=== PATIENT | male | born 1970 | race Caucasian/White ===

== ENCOUNTER 2025-07-10 12:13 | Emergency (ER) | payer BC ==
--- OUTSIDE RECORDS SUMMARY | 2025-07-10 12:16 | XMS REPORT | Continuity of Care Document ---
Author Name Unknown Address [address] [facility] [address] [place] [address] Organization [facility] Address [address] [facility] 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 Role Phone Meño Galloway Primary Care Physician [phone] Lab, Adc Fam Pob I Attending Clinician Libby Kline Attending Clinician Suellen Pablo Attending Clinician [phone] Payers Payer Name Policy Type Policy Number Effective Date Expirati on Date Source Problems Condition Name Condition Details Condition Category Status Onset Date Resolution Date Last Treatment Date Treating Clinician Comments Source No known active problems No known active problems Disease [facility] Allergies, Adverse Reactions, Alerts Allergy Name Allergy Type Status Severity Reaction(s) Onset Date Inactive Date Treating Clinician Comments Source none (Not Checked) Propensi ty to adverse reaction to drug Active 02-01 00:00: 00 Carlos Garcia Social History Social Habit Start Date Stop Date Quantity Comments Source Exposure to SARS-CoV-2 (event) Not sure [facility] Sex Assigned At [facility] Smoking Status Start Date Stop Date Source Unknown if ever smoked [facility] Medications Ordered Medication Name Filled Medication Name Start Date Stop Date Current Medication? Ordering Clinician Indication Dosage Frequency Signature (SIG) Comments Components Source metformin 500 mg tablet 02-01 00:00: 00 Yes 1mg Carlos Garcia atorvastati n 10 mg tablet 02-01 00:00: 00 Yes 1mg Carlos Garcia oxybutynin chloride ER 10 mg tablet,exte nded release 24 hr 02-01 00:00: 00 Yes 1mg Carlos Garcia TAKE 1 TABLET BY MOUTH EVERY 4 TO 6 HOURS NEEDED 06-23 00:00: 00 Yes Carlos Garcia AMOXICILLIN 500MG CAPSULES 06-23 00:00: 00 Yes Carlos Garcia TAKE 1 TABLET DAILY. 11-28 00:00: 00 02-01 00:00 :00 No 500 Carlos Garcia TAKE 1 TABLET DAILY. 11-28 00:00: 00 02-01 00:00 :00 No 10 Carlos Garcia TAKE 1 TABLET BY MOUTH DAILY DIRECTED 11-28 00:00: 00 02-01 00:00 :00 No 10 Carlos Garcia ORPHENADRIN E ER 100 MG 2021-09 00:00: 00 Yes 100 Carlos Garcia MELOXICAM 7.5 MG 2021-09 00:00: 00 Yes 75 Carlos Garcia ibuprofen (IBU) tablet 800 mg 05-12 02:45: 00 05-12 01:38 :00 No 800mg 800 mg, Oral, ONCE, 1 dose, 05/11/19 at 2145, TIFFANIE [facility] No known medications No Un yesika [facility] No known medications No Un [facility] Vital Signs Vital Name Observation Time Observation Value Comments S ource Diastolic blood pressure 2019-05-12 01:05:00 75 mm[Hg] [facility] Heart rate 2019-05-12 01:05:00 78 /min [facility] Body temperature 2019-05-12 01:05:00 37 Daniela [facility] Respiratory rate 2019-05-12 01:05:00 20 /min [facility] Body height 2019-05-12 01:05:[address] [facility] Body weight 2019-05-12 01:05:[address] [facility] BMI 2019-05-12 01:05:00 29.16 kg/m2 [facility] Oxygen saturation in Arterial blood by Pulse oximetry 2019-05-12 01:05:00 99 /min [facility] Systolic blood pressure 2019-05-12 01:05:00 114 mm[Hg] [facility] Height Measured 2024-02-02 17:14:00 71.00 inches Carlos F Jose Body Temperature 2024-02-02 17:14:00 97.70 degrees Carlos F Jose Heart Rate 2024-02-02 17:14:00 65.00 /min Dodie en F Jose Respiratory Rate 2024-02-02 17:14:00 18.00 /min Carlos F Jose BP Systolic 2024-02-02 17:14:00 122 mm[Hg] Step hen F Jose BP Diastolic 2024-02-02 17:14:00 81 mm[Hg] [place] phen F Jose Weight Measured 2024-02-02 17:14:00 219.80 pounds Carlos F Jose BP Systolic 2022-11-28 14:31:00 133 mm[Hg] Step hen F Jose BP Diastolic 2022-11-28 14:31:00 68 mm[Hg] [place] phen F Jose Weight Measured 2022-11-28 14:31:00 225.40 pounds Carlos F Jose Height Measured 2022-11-28 14:31:00 71.00 inches Carlos F Jose Body Temperature 2022-11-28 14:31:00 97.40 degrees Carlos F Jose Heart Rate 2022-11-28 14:31:00 70.00 /min Dodie en F Jose Respiratory Rate 2022-11-28 14:31:00 25.00 /min Carlos F Jose BP Systolic 2022-11-27 13:59:00 135 mm[Hg] Step hen F Jose BP Diastolic 2022-11-27 13:59:00 83 mm[Hg] [place] phen F Jose Weight Measured 2022-11-27 13:59:00 224.60 pounds Carlos F Jose Height Measured 2022-11-27 13:59:00 71.00 inches Carlos F Jose Body Temperature 2022-11-27 13:59:00 97.50 degrees Carlos F Jose Heart Rate 2022-11-27 13:59:00 70.00 /min Dodie en F Jose Respiratory Rate 2022-11-27 13:59:00 Carlos F Jose Procedures Procedure Date / Time Performed Performing Clinicia n Source XR ANKLE <3 VW LEFT 2019-05-12 01:52:12 Jackelin Haji [facility] XR FOOT <3 VW LEFT 2019-05-12 01:52:12 Suellen Haji [facility] Encounters Start Date/Time End Date/Time Encounter Type Admission Type Attending [facility] Care Department Encounter ID Source 2024-02-05 08:04:45 2024-02-05 08:04:45 Outpatient SFA SFA [id number] Carlos Garcia 2024-02-02 17:12:31 2024-02-02 17:12:31 Outpatient SFA SFA [id number] Carlos Garcia 2024-02-02 00:00:00 2024-02-02 00:00:00 Outpatient Visit SFA [id number] Carlos Garcia 2022-11-28 14:27:12 2022-11-28 14:27:12 Outpatient SFA SFA [id number] Carlos Garcia 2022-11-27 13:52:57 2022-11-27 13:52:57 Outpatient SFA SFA [id number] Carlos Gomez Jose 2020-10-08 15:48:10 2020-10-08 16:03:10 Laboratory Only Lab, Adc Fam Pob Mikhail Milan [facility] Office [address] [id number] [facility] 2019-05-11 20:07:07 2019-05-11 21:36:00 Emergency Suellen Haji [facility] [id number] [facility] Results Test Description Test Time Test Comments Results Result Co mments Source LIPID [id number] 05:17:12* Test Item Value Reference Range Interpretation Comme nts CHOLESTEROL (test code = 2210) 192 MG/DL <200 TRIGLYCERIDES (test code = 2232) 152 MG/DL <150 H HDL CHOLESTEROL (test code = 2220) 34 MG/DL >39 L CALC LDL CHOL (test code = 2237) 131 MG/DL <100 H NOTE: CALCULATED LDL IS BASED ON SHRUTHI-SANDOVAL METHOD WHICHINCLUDES ADJUSTABLE TRIGLYCERIDE:VLDL CHOLESTEROL RATIO.THIS FACTOR VARIES BY MEASURED TRIGLYCERIDE AND NON-HDLCHOLESTEROL CONCENTRATIONS WITH INCREASED CALCULATED LDL SEENIN HIGHER TRIGLYCERIDE OR LOWER NON-HDL SPECIMENS. FOR MOREINFORMATION, SEE CLIENT ANNOUNCEMENT AT [email or web address] /[email or web address] RISK RATIO LDL/HDL (test code = 2238) 3.85 RATIO <3.55 H UNLESS OTHERW ISE INDICATED, ALL TESTING PERFORMED AT [facility] [address] [place] [address] SIGNAL ENGINEER: ELIZABETH SHAVER M.D. CLIA NUMBER [id number] [place]. [id number] HEMOGLOBIN [id number] 02:51:22* Test Item Value Reference Range Interpretation Comme nts HEMOGLOBIN A1c (test code = 02500) 5.9 % 4.2-5.6 H ETHIOPIAN DIAB[employer]E S ASSOCIATION GUIDELINES FOR HGB A1C: PREDIABETES/INCREASED RISK . . . . . . . 5.7-6.4% DIAGNOSIS OF DIABETES . . . . . . . . . >=6.5% WITH CONFIRMATION OR APPROPRIATE SYMPTOMS NOTE: ASSAY MAY BE AFFECTED BY HEMOGLOBINOPATHIES (SICKLE CELL ANEMIA, S-C DISEASE, OTHERS) OR ARTIFICIALLY LOWERED BY DECREASED RED CELL SURVIVAL (HEMOLYTIC ANEMIAS, BLOOD LOSS, ETC.). CONSIDER ALTERNATE TESTING OR LABORATORY CONSULTATION. OCCULT BLD,FECAL,IMMUNOASSAY [id number] 11:24:01* Test Item Value Reference Range Interpretation Comme nts OCCULT BLD, FECAL (test code = 55483) NEGATIVE NEGATIVE [facility] has important pathology staff changes effective 11/27/2022. New pathology staff will provide uninterrupted, excellent patient care and clinical consultation. See URL: [email or web address]. UNLESS OTHERWISE INDICATED, ALL TESTING PERFORMED AT [facility] [employer] [address] [place] [id number] SIGNAL ENGINEER: ELIZABETH SHAVER M.D. CLIA NUMBER [id number] [place]. [id number] OCCULT BLD,FECAL,IMMUNOASSAY [id number] 00:00:00* Test Item Value Reference Range Interpretation Comme nts OCCULT BLD, FECAL (test code = 83263) NEGATIVE Carlos GarciaNOTE:2022-11-29 06:01:13* Test Item Value Reference Range Interpretation Comme nts NOTE: (test code = 998) (NOTE) IN ACCORDANCE [facility] FEDERAL GUIDELINES REQUIRING ALL VERBAL REQUESTS FOR LABORATORY TESTS TO BE ACCOMPANIED BY WRITTEN AUTHORIZATION WITHIN 30 DAYS OF THIS REQUEST, PLEASE SIGN BELOW AND RETURN A COPY OF THIS REPORT BY FAX TO THE LABORATORY SCANNING DEPARTMENT AT [phone]. PHYSICIAN'S SIGNATURE DATE [facility] has important pathology staff changes effective 11/27/2022. New pathology staff will provide uninterrupted, excellent patient care and clinical consultation. See URL: [email or web address]. UNLESS OTHERWISE INDICATED, ALL TESTING PERFORMED AT [facility] [address] [place] [address] SIGNAL ENGINEER: TIFFANIE PATTERSON M.D. CLIA NUMBER [id number] [facility] [place]. [id number] PSA, [id number] 00:50:18* Test Item Value Reference Range Interpretation Comme nts PSA, TOTAL (test code = 2606) 0.46 NG/ML See_Comment NOTE: Methodolog y is Bhupinder Lynn Electrochemiluminescence Immunoassay traceable to WHO reference standard 96/760. [Automated message] The system which generated this result transmitted reference range: <=4.00. The reference range was not used to interpret this result as normal/abnormal. PSA, TOTAL [ADDED]2022-11-29 00:00:00* Test Item Value Reference Range Interpretation Comme nts PSA, TOTAL (test code = 2606) 0.46 NG/ML Carlos GarciaNOTE: [ADDED]2022-11-29 00:00:00* Test Item Value Reference Range Interpretation Comme nts NOTE: (test code = 998) (NOTE) Carlos GarciaCOMPREHENSIVE METABOLIC [id number] 06:04:58* Test Item Value Reference Range Interpretation Comme nts GLUCOSE (test code = 2217) 121 MG/DL 70-99 H BUN (test code = 2208) 11 MG/DL 6-20 CREATININE (test code = 2213) 1.04 MG/DL 0.80-1.40 eGFR (2020 CKD-EPI) (test code = ) 87 ML/MIN/1.73 >60 CALC BUN/CREAT (test code = 2234) 11 RATIO 6-28 SODIUM (test code = 2230) 141 MEQ/L 133-146 POTASSIUM (test code = 2227) 4.8 MEQ/L 3.5-5.4 CHLORIDE (test code = 2214) 101 MEQ/L 95-107 CARBON DIOXIDE (test code = 2205) 26 MEQ/L 19-31 CALCIUM (test code = 2208) 9.6 MG/DL 8.5-10.5 PROTEIN, TOTAL (test code = 2228) 6.8 G/DL 6.1-8.3 ALBUMIN (test code = 2200) 4.6 G/DL 3.5-5.2 CALC GLOBULIN (test code = 2239) 2.2 G/DL 1.9-3.7 CALC A/G RATIO (test code = 2233) 2.1 RATIO 1.0-2.6 BILIRUBIN, TOTAL (test code = 2206) 0.3 MG/DL See_Comment [Automated me ssage] The system which generated this result transmitted reference range: <=1.2. The reference range was not used to interpret this result as normal/abnormal. ALKALINE PHOSPHATASE (test code = 2203) 84 U/L 40-118 AST (test code = 2217) 16 U/L 9-50 ALT (test code = 2218) 12 U/L 5-50 LIPID [id number] 06:04:58* Test Item Value Reference Range Interpretation Comme nts CHOLESTEROL (test code = 2210) 194 MG/DL <200 TRIGLYCERIDES (test code = 2232) 340 MG/DL <150 H HDL CHOLESTEROL (test code = 2220) 31 MG/DL >39 L CALC LDL CHOL (test code = 7) 114 MG/DL <100 H NOTE: CALCULATED LDL IS BASED ON SHRUTHI-SANDOVAL METHOD WHICHINCLUDES ADJUSTABLE TRIGLYCERIDE:VLDL CHOLESTEROL RATIO.THIS FACTOR VARIES BY MEASURED TRIGLYCERIDE AND NON-HDLCHOLESTEROL CONCENTRATIONS WITH INCREASED CALCULATED LDL SEENIN HIGHER TRIGLYCERIDE OR LOWER NON-HDL SPECIMENS. FOR MOREINFORMATION, SEE CLIENT ANNOUNCEMENT AT [email or web address] RISK RATIO LDL/HDL (test code = 2238) 3.68 RATIO <3.55 H HEMOGLOBIN [id number] 05:58:02* Test Item Value Reference Range Interpretation Comme nts HEMOGLOBIN A1c (test code = 58899) 6.1 % 4.2-5.6 H ETHIOPIAN DIABETE S ASSOCIATION GUIDELINES FOR HGB A1C: PREDIABETES/INCREASED RISK . . . . . . . 5.7-6.4% DIAGNOSIS OF DIABETES . . . . . . . . . >=6.5% WITH CONFIRMATION OR APPROPRIATE SYMPTOMS NOTE: ASSAY MAY BE AFFECTED BY HEMOGLOBINOPATHIES (SICKLE CELL ANEMIA, S-C DISEASE, OTHERS) OR ARTIFICIALLY LOWERED BY DECREASED RED CELL SURVIVAL (HEMOLYTIC ANEMIAS, BLOOD LOSS, ETC.). CONSIDER ALTERNATE TESTING OR LABORATORY CONSULTATION. [facility] has important pathology staff changes effective 11/27/2022. New pathology staff will provide uninterrupted, excellent patient care and clinical consultation. See URL: [email or web address]. UNLESS OTHERWISE INDICATED, ALL TESTING PERFORMED AT [facility] [address] [place] [address] SIGNAL ENGINEER: TIFFANIE PATTERSON M.D. CLIA NUMBER [id number] [facility] [place]. [id number] CBC W/AUTO DIFF WITH [id number] 05:34:42* Test Item Value Reference Range Interpretation Comme nts WBC (test code = 1001) 6.8 K/UL 3.5-11.0 RBC (test code = 1002) 5.12 M/UL 4.50-6.10 HEMOGLOBIN (test code = 1003) 14.3 G/DL 13.5-17.0 HEMATOCRIT (test code = 1004) 43.0 % 40.0-51.0 MCV (test code = 1005) 84.0 fL 80.0-99.0 MCH (test code = 1006) 27.9 PG 25.0-33.0 MCHC (test code = 1007) 33.3 G/DL 31.0-36.0 RDW (test code = 1038) 12.5 % 11.5-15.0 NEUTROPHILS (test code = 1008) 51.6 % LYMPHOCYTES (test code = 1010) 40.8 % MONOCYTES (test code = 1011) 6.2 % EOSINOPHILS (test code = 1012) 0.0 % BASOPHILS (test code = 1013) 1.3 % IMMATURE GRANULOCYTES (test code = 1036) 0.1 % NUCLEATED RBCS (test code = 1065) 0.0 /100 WBC'S See_Comment [Automated [employer]] The system which generated this result transmitted reference range: 0.0. The reference range was not used to interpret this result as normal/abnormal. PLATELET COUNT (test code = 1015) 206 K/UL 130-400 ABSOLUTE NEUTROPHILS (test code = 1066) 3.50 K/UL 1.50-7.50 ABSOLUTE LYMPHOCYTES (test code = 1067) 2.77 K/UL 1.00-4.00 ABSOLUTE MONOCYTES (test code = 1068) 0.42 K/UL 0.20-1.00 ABSOLUTE EOSINOPHILS (test code = 1040) 0.00 K/UL 0.00-0.50 ABSOLUTE BASOPHILS (test code = 1069) 0.09 K/UL 0.00-0.20 ABS IMMATURE GRANULOCYTES (test code = 1020) 0.01 K/UL 0.00-0.10 ABS NUCLEATED RBCS (test code = 18301) 0.00 K/UL 0.00-0.11 COMPREHENSIVE METABOLIC [id number] 00:00:00* Test Item Value Reference Range Interpretation Comme nts GLUCOSE (test code = 2217) 121 MG/DL BUN (test code = 2208) 11 MG/DL CREATININE (test code = 2214) 1.04 MG/DL eGFR (2020 CKD-EPI) (test co de = 74268) 87 ML/MIN/1.73 CALC BUN/CREAT (test code = 2235) 11 RATIO SODIUM (test code = 2231) 141 MEQ/L POTASSIUM (test code = 2228) 4.8 MEQ/L CHLORIDE (test code = 2215) 101 MEQ/L CARBON DIOXIDE (test code = 2206) 26 MEQ/L CALCIUM (test code = 2209) 9.6 MG/DL PROTEIN, TOTAL (test code = 2229) 6.8 G/DL ALBUMIN (test code = 2201) 4.6 G/DL CALC GLOBULIN (test code = 2240) 2.2 G/DL CALC A/G RATIO (test code = 2234) 2.1 RATIO BILIRUBIN, TOTAL (test code = 2207) 0.3 MG/DL ALKALINE PHOSPHATASE (test code = 2204) 84 U/L AST (test code = 2218) 16 U/L ALT (test code = 2219) 12 U/L Carlos GarciaLIPID [id number] 00:00:00* Test Item Value Reference Range Interpretation Comme nts CHOLESTEROL (test code = 2210) 194 MG/DL TRIGLYCERIDES (test code = 2232) 340 MG/DL HDL CHOLESTEROL (test code = 2220) 31 MG/DL CALC LDL CHOL (test code = 2237) 114 MG/DL RISK RATIO LDL/HDL (test cod e = 2238) 3.68 RATIO Carlos GarciaCBC W/AUTO [id number] 00:00:00* Test Item Value Reference Range Interpretation Comme nts WBC (test code = 1001) 6.8 K/UL RBC (test code = 1002) 5.12 M/UL HEMOGLOBIN (test code = 1003) 14.3 G/DL HEMATOCRIT (test code = 1004) 43.0 % MCV (test code = 1005) 84.0 fL MCH (test code = 1006) 27.9 PG MCHC (test code = 1007) 33.3 G/DL RDW (test code = 1038) 12.5 % NEUTROPHILS (test code = 1008) 51.6 % LYMPHOCYTES (test code = 1010) 40.8 % MONOCYTES (test code = 1011) 6.2 % EOSINOPHILS (test code = 1012) 0.0 % BASOPHILS (test code = 1013) 1.3 % IMMATURE GRANULOCYTES (test code = 1036) 0.1 % NUCLEATED RBCS (test code = 1065) 0.0 /100WBC'S PLATELET COUNT (test code = 1015) 206 K/UL ABSOLUTE NEUTROPHILS (test c ode = 1066) 3.50 K/UL ABSOLUTE LYMPHOCYTES (test c ode = 1067) 2.77 K/UL ABSOLUTE MONOCYTES (test cod e = 1068) 0.42 K/UL ABSOLUTE EOSINOPHILS (test c ode = 1040) 0.00 K/UL ABSOLUTE BASOPHILS (test cod e = 1069) 0.09 K/UL ABS IMMATURE GRANULOCYTES (t est code = 1020) 0.01 K/UL ABS NUCLEATED RBCS (test cod e = 37942) 0.00 K/UL Carlos GarciaHEMOGLOBIN [id number] 00:00:00* Test Item Value Reference Range Interpretation Comme nts HEMOGLOBIN A1c (test code = 55573) 6.1 % Carlos Garcia Notes Date/Time Note Provider Source Carlos Garcia Formerly [facility]
--- NOTE | 2025-07-10 12:38 | EDPHYS ---
Physician Documentation [facility] Name: Emily Zheng Age: 54 yrs Sex: Male : 1970 Arrival Date: 07/10/2025 Time: 12:13 Bed 11 Private MD: ED Physician Reagan Head HPI: 07/10 12:34 This 54 yrs old Male presents to ER via Ambulatory with complaints of Toothache, Rash. rn 12:34 Patient presents with toothache and rash. Is more concerned about rash. Toothache rn started 3 days ago but no focal swelling noted. Reports rash to the top of the left foot that is now spreading to the top of the right foot and the left palm. It is itchy. No fever or chills. Has been trying antifungal treatment without alleviation of symptoms.. Historical: - Allergies: 12:33 No Known Allergies; dd2 - PMHx: 12:33 None; dd2 - PSHx: 12:33 None; dd2 - Immunization history:: Adult Immunizations unknown. - Infectious Disease History:: Denies. - Social history:: Smoking status: Patient reports the use of cigarette tobacco products, smokes one pack cigarettes per day. Patient reports use of chewing tobacco. - Family history:: not pertinent. - Hospitalizations: : No recent hospitalization is reported. ROS: 12:34 Constitutional: Negative for fever, chills, and weight loss, ENT: Positive for dental rn pain Skin: Positive for rash and itching to feet and hand Exam: 12:34 Constitutional: This is a well developed, well nourished patient who is awake, alert, rn and in no acute distress. Skin: Warm, dry circular patch of erythema and honey colored crusting noted to the dorsum of the left foot, little on the dorsum of the right foot and the palm of the left hand. No streaking or bullae or fluctuance noted. Vital Signs: 12:29 BP 136 / 89; Pulse 83; Resp 16; Temp 98.1; Pulse Ox 99% on R/A; Weight 113.4 kg; Pain dd2 7/10; 12:29 Pain Scale: Adult dd2 MDM: 12:29 Medical Screening Exam initiated rn 12:34 Differential diagnosis: dental caries, Cellulitis, impetigo, fungal infection. Data rn reviewed: vital signs, nurses notes, and as a result, I will discharge patient. Counseling: I had a detailed discussion with the patient and/or guardian regarding the historical points, exam findings, and any diagnostic results supporting the discharge/admit diagnosis, the need for outpatient follow up, to return to the emergency department if symptoms worsen or persist or if there are any questions or concerns that arise at home. Special discussion: I discussed with the patient/guardian in detail that at this point there is no indication for admission to the hospital. It is understood, however, that if the symptoms persist or worsen the patient needs to return immediately for re-evaluation. 12:34 ED course: Will treat with oral antibiotics and mupirocin given patient is not getting rn relief with antifungal treatment.. Administered Medications: 12:41 Drug: Clindamycin PO 300 mg PO once Route: PO; ll1 12:48 Follow up: Response: No adverse reaction ll1 Disposition Summary: 07/10/25 12:37 Discharge Ordered Notes: Location: Home rn Problem: new rn Symptoms: have improved rn Condition: Stable rn Diagnosis - Cellulitis, unspecified rn - Impetigo, unspecified rn Followup: rn - With: Private Physician - When: As needed - Reason: Recheck today's complaints, Re-evaluation by your physician Discharge Instructions: - Discharge Summary Sheet rn - Cellulitis, Adult rn - Impetigo, Adult rn Forms: - Medication Reconciliation Form rn - Antibiotic legal intern - Prescription Opioid Use rn - Patient Portal Instructions rn - Leadership Thank You Letter rn - Work release form ll1 Prescriptions: - mupirocin 2 % Topical ointment - apply 1 application TOPICAL route 3 times per day; 1 unit; Refills: 0, Product rn Selection Permitted - Clindamycin HCl 300 mg Oral Capsule - take 1 capsule ORAL route every 6 hours for 10 days; 40 capsule; Refills: 0, rn Product Selection Permitted Signatures: Reagan Head MD MD rn Lewis, Lynsay RN RN ll1 FRED GARNER RN RN dd2
--- NOTE | 2025-07-10 12:38 | ER ---
Nurse's Notes [facility] Name: Emily Zheng Age: 54 yrs Sex: Male : 1970 Arrival Date: 07/10/2025 Time: 12:13 Bed 11 Private MD: Diagnosis: Cellulitis, unspecified;Impetigo, unspecified Presentation: 07/10 12:29 Chief complaint: Patient states: UPPER RIGHT TOOTH PAIN X 3 DAYS. PEELING RASH ON AMBAR dd2 PALMS AND TOP OF AMBAR FEET X 1 MONTH. Coronavirus screen: At this time, the client does not indicate any symptoms associated with coronavirus-19. Ebola Screen: No symptoms or risks identified at this time. Initial Sepsis Screen: Does the patient meet any 2 criteria? No. Patient's initial sepsis screen is negative. Does the patient have a suspected source of infection? No. Patient's initial sepsis screen is negative. Risk Assessment: Do you want to hurt yourself or someone else? Patient reports no desire to harm self or others. Onset of symptoms was June 10, 2025. 12:29 Method Of Arrival: Ambulatory dd2 12:29 Acuity: LARRY 4 dd2 Triage Assessment: 12:33 General: Appears in no apparent distress. uncomfortable, Behavior is calm, cooperative, dd2 appropriate for age. Pain: Complains of pain in heel of right hand, heel of left hand, dorsum of right foot, dorsum of left foot and upper right cuspid Pain currently is 7 out of 10 on a pain scale. EENT: Poor dentition noted. Reports pain in upper right cuspid. Derm: Rash noted that is itchy, on heel of right hand, heel of left hand, dorsum of right foot and dorsum of left foot PEELING Reports itching, pain peeling. Historical: - Allergies: 12:33 No Known Allergies; dd2 - PMHx: 12:33 None; dd2 - PSHx: 12:33 None; dd2 - Immunization history:: Adult Immunizations unknown. - Infectious Disease History:: Denies. - Social history:: Smoking status: Patient reports the use of cigarette tobacco products, smokes one pack cigarettes per day. Patient reports use of chewing tobacco. - Family history:: not pertinent. - Hospitalizations: : No recent hospitalization is reported. Screenin:48 [facility] ED Fall Risk Assessment (Adult) History of falling in the last 3 months, ll1 including since admission No falls in past 3 months (0 pts) Confusion or Disorientation No (0 pts) Intoxicated or Sedated No (0 pts) Impaired Gait No (0 pts) Mobility Assist Device Used No (0 pt) Altered Elimination No (0 pt) Score/Fall Risk Level 0 - 2 = Low Risk Maintained a safe environment, Hourly rounding (assess needs \T\ fall precautionary measures) done. Abuse screen: Denies threats or abuse. Nutritional screening: No deficits noted. Tuberculosis screening: No symptoms or risk factors identified. Assessment: 12:48 Reassessment: No changes from previously documented assessment. Patient and/or family ll1 updated on plan of care and expected duration. Pain level reassessed. Patient is alert, oriented x 3, equal unlabored respirations, skin warm/dry/pink. Vital Signs: 12:29 BP 136 / 89; Pulse 83; Resp 16; Temp 98.1; Pulse Ox 99% on R/A; Weight 113.4 kg; Pain dd2 7/10; 12:29 Pain Scale: Adult dd2 ED Course: 12:16 Patient arrived in ED. im 12:29 Reagan Head MD is Attending Physician. rn 12:33 Triage completed. dd2 12:33 Arm band placed on right wrist. dd2 12:45 Patient has correct armband on for positive identification. Provided Education on: ER ll1 procedures and process. 12:49 No provider procedures requiring assistance completed. Patient did not have IV access ll1 during this emergency room visit. Administered Medications: 12:41 Drug: Clindamycin PO 300 mg PO once Route: PO; ll1 12:48 Follow up: Response: No adverse reaction ll1 Medication: 12:49 VIS not applicable for this client. ll1 Outcome: 12:37 Discharge ordered by . rn 12:49 Discharged to home ambulatory, ll1 12:49 Condition: stable 12:49 Discharge instructions given to patient, Instructed on discharge instructions, follow up and referral plans. medication usage, Demonstrated understanding of instructions, follow-up care, medications, Prescriptions given X 2, 12:49 Patient left the ED. ll1 Signatures: Reagan Head MD MD rn Lewis, Lynsay, RN RN ll1 Mónica Smith im PASCUAL, FRED, RN RN dd2
[2025-07-10 19:40] VITALS: BP 136/89; TEMP 98.1; O2SAT 99
== END 2025-07-10 12:49 | disposition home or self-care (01) ==
LOC: ER 12:13
DX: L03.90 Cellulitis, unspecified (principal); L01.00 Impetigo, unspecified
CPT/HCPCS: 99283